=== PATIENT | female | born 2000 | race African-American/Black ===

== ENCOUNTER 2020-05-25 21:20 | Inpatient (IN) | payer SELFPAY ==
[~2020-05-25] VITALS: Ht 157.5 cm; Wt 61.2 kg
[2020-05-25 22:49] LABS: HEMATOCRIT. 43.6 % (36.0-48.0); HEMOGLOBIN. 14.6 g/dL (12.0-16.0); MEAN CORPUSCULAR HEMOGLOBIN 34.1 pg (28.0-32.0); MEAN CORPUSCULAR VOLUME 102.3 fL (81.0-99.0); MEAN PLATELET VOLUME 10.9 fl (7.4-10.4); PLATELET 187 x1000/uL (130-400); RED BLOOD CELL COUNT 4.27 mill/uL (4.2-5.4); RED CELL DISTRIBUTION WIDTH 12.2 % (11.6-14.6)
[2020-05-25 22:53] LABS: CHLORIDE 108 mEq/L (98-107)
[2020-05-25 22:55] LABS: HCG SCREEN NEGATIVE
[2020-05-25 23:01] LABS: *AMPHETAMINES SCREEN URINE NEGATIVE (NEGATIVE); *BARBITURATES SCREEN URINE NEGATIVE (NEGATIVE); *BENZODIAZEPINES SCREEN URINE NEGATIVE (NEGATIVE); *COCAINE SCREEN URINE NEGATIVE (NEGATIVE); METHADONE URINE SCREEN NEGATIVE (NEGATIVE)
[2020-05-25] MEDS ORDERED: VISCOUS LIDOCAINE 2% 15 ML UDC MM STA (23:01)
[2020-05-25 23:02] LABS: PHENCYCLIDINE URINE SCREEN NEGATIVE (NEGATIVE)
[2020-05-25 23:10] LABS: CANNABINOID URINE SCREEN PRESUMTIVE POSITIVE (NEGATIVE); OPIATES URINE SCREEN PRESUMTIVE POSITIVE (NEGATIVE)
[2020-05-25] MEDS ORDERED: FAMOTIDINE 20MG TABLET PO ONE (23:15)
[2020-05-25] MEDS ORDERED: MAGNESIUM/ALUMINUM HYDROXIDE/SIMETHICONE 30ML UDC PO ONE (23:15)
[2020-05-25 23:22] LABS: PLATELET ESTIMATE NORMAL
[2020-05-25] MEDS ORDERED: ONDANSETRON HCL 4MG/2ML INJ IV ONE (23:45)
[2020-05-25] MEDS ORDERED: HALOPERIDOL LACTATE 5MG/ML VIAL IM ONE (23:45)
[2020-05-26] MEDS ORDERED: SODIUM CHLORIDE 0.9% 1,000 ML IV ONE (02:30)
[2020-05-26] MEDS ORDERED: LORAZEPAM 2MG/ML CPJ IV ONE (02:30)
[2020-05-26 06:07] LABS: CLARITY URINE CLEAR (CLEAR); COLOR URINE YELLOW (YELLOW); KETONES URINE TRACE (NEGATIVE); LEUKOCYTE ESTERASE URINE NEGATIVE (NEGATIVE); NITRITE URINE NEGATIVE (NEGATIVE); OCCULT BLOOD URINE TRACE (NEGATIVE); PH URINE 6.5 (4.5-8.0); PROTEIN URINE 3+ (NEGATIVE); SPECIFIC GRAVITY URINE 1.011 (1.005-1.030); UROBILINOGEN URINE 0.2 E.U./dL (0.2-1.0)
[2020-05-26] MEDS: ONDANSETRON HCL 4MG/2ML INJ IV PRN ×3 (06:17→20:25)
[2020-05-26] MEDS ORDERED: METOCLOPRAMIDE HCL 10MG/2ML VIAL IV SCH (08:00)
[2020-05-26] MEDS ORDERED: ACETAMINOPHEN 325MG TABLET PO PRN (15:45)
[2020-05-26] MEDS ORDERED: OMEPRAZOLE 20MG CAPSULE EXTENDED RELEASE PO SCH ×2 (15:45→21:00)
[2020-05-26] MEDS ORDERED: ALBU90AE INH (15:46)
[2020-05-26 16:00] VITALS: BP 124/82
[2020-05-26 16:01] VITALS: BP 124/82
[2020-05-26] MEDS: DEXT 5%/0.45% NACL 1000ML 1,000 ML IV SCH (16:39)
[2020-05-26] MEDS: SUCRALFATE 1 G/10 ML UDC PO SCH (17:53)
[2020-05-26 20:00] VITALS: BP 114/78
[2020-05-26] MEDS ORDERED: HYDROCODONE/ACETAMINOPHEN 5/325MG TABLET PO PRN (21:00)
[2020-05-26] MEDS: PANTOPRAZOLE SODIUM 40 MG/VIAL IV SCH (21:09)
[2020-05-27] VITALS: BP 115/75
[2020-05-27] MEDS: SUCRALFATE 1 G/10 ML UDC PO SCH ×4 (00:35→18:11)
[2020-05-27] MEDS: DEXT 5%/0.45% NACL 1000ML 1,000 ML IV SCH ×2 (02:00→13:07)
[2020-05-27] MEDS: ONDANSETRON HCL 4MG/2ML INJ IV PRN ×3 (03:10→18:11)
[2020-05-27 04:00] VITALS: BP 129/76
[2020-05-27 06:48] LABS: CHLORIDE 110 mEq/L (98-107)
[2020-05-27 07:54] LABS: HEMATOCRIT. 43.2 % (36.0-48.0); HEMOGLOBIN. 14.3 g/dL (12.0-16.0); MEAN CORPUSCULAR HEMOGLOBIN 34.7 pg (28.0-32.0); MEAN CORPUSCULAR VOLUME 105.2 fL (81.0-99.0); MEAN PLATELET VOLUME 10.7 fl (7.4-10.4); PLATELET 120 x1000/uL (130-400); RED BLOOD CELL COUNT 4.11 mill/uL (4.2-5.4)
[2020-05-27 08:00] VITALS: BP 136/83
[2020-05-27] MEDS ORDERED: POTASSIUM CHLORIDE 20MEQ TABLET SR PO NR (09:15)
[2020-05-27] MEDS: PANTOPRAZOLE SODIUM 40 MG/VIAL IV SCH (10:18)
[2020-05-27 11:59] LABS: NUCLEATED RED BLOOD CELLS 1 /100 WBC; PLATELET ESTIMATE SLIGHTLY DECREASED
[2020-05-27 12:00] VITALS: BP 112/64
[2020-05-27] MEDS ORDERED: OMEP40CA12 MT (13:19)
[2020-05-27 16:00] VITALS: BP 130/84
[2020-05-27 18:43] VITALS: BP 130/84
== END 2020-05-27 18:58 | disposition home or self-care (01) | DRG 241 ==
LOC: ER 21:20 → 6EST 05-26 02:28 → ENRESERV 05-26 14:30
PROVIDERS: ADMIT Internal Medicine; ATTEND Internal Medicine
DX: K29.70 Gastritis, unspecified, without bleeding (principal); N83.209 Unspecified ovarian cyst, unspecified side; E87.6 Hypokalemia; E87.8 Other disorders of electrolyte and fluid balance, not elsewhere classified; F12.90 Cannabis use, unspecified, uncomplicated; F17.210 Nicotine dependence, cigarettes, uncomplicated; J45.909 Unspecified asthma, uncomplicated; K52.9 Noninfective gastroenteritis and colitis, unspecified; K22.6 Gastro-esophageal laceration-hemorrhage syndrome; N17.0 Acute kidney failure with tubular necrosis; Z20.828 Contact with and (suspected) exposure to other viral communicable diseases; K59.00 Constipation, unspecified; K83.8 Other specified diseases of biliary tract; Z79.899 Other long term (current) drug therapy; Z91.040 Latex allergy status; Z71.6 Tobacco abuse counseling
CPT/HCPCS: 36415; 71045; 76705; 78227; 80048; 80053; 80305; 81003; 83880; 84484; 84703; 85025; 87426; 93005; 99285; A9537; C1893; C9113; J1630; J2060; J2405; J2765; J7030